=== PATIENT | female | born 1965 | race Caucasian/White ===

== ENCOUNTER 2016-09-11 11:06 | Observation (INO) | payer MEDICAID, MEDICARE ==
[2016-09-11] MEDS ORDERED: Aspirin Low Dose CHEW TAB* 81 MG PO ONE (11:54)
[2016-09-11 12:08] LABS: Hematocrit 44 % (35-47); Hemoglobin 14.4 g/dl (12.0-16.0); Mean Corpuscular HGB Conc 33 g/dl (31-36); Mean Corpuscular Hemoglobin 27 pg (27-31); Mean Corpuscular Volume 84 fL (80-97); Mean Platelet Volume 8 um3 (7.4-10.4); Red Blood Count 5.27 10^6/ul (4.0-5.4); Red Cell Distribution Width 16 % (10.5-15); White Blood Count 4.4 10^3/ul (3.5-10.8)
[2016-09-11 12:20] LABS: Albumin 3.9 g/dL (3.2-5.2); BUN/Creatinine Ratio 12.9 (8-20); Calcium 9.1 mg/dL (8.6-10.3); EGFR African American 74.3 (>60); EGFR Non-African American 57.8 (>60); Globulin 2.9 g/dL (2-4); Total Bilirubin 0.6 mg/dL (0.2-1.0); Total Protein 6.8 g/dL (6.4-8.9)
--- NOTE | 2016-09-11 12:26 | RAD ---
Indication: Shortness of breath. Back pain. History of surgery this year to remove a mass near the heart. Comparison: No relevant prior exams available on the [facility] PACS for comparison. Technique: Upright AP 1202 hours Report: Obese body habitus limits image quality. Mild blunting of the LEFT costophrenic angle while nonspecific may reflect a small effusion or parenchymal thickening. The lungs are otherwise clear. Negative for pneumothorax. Cardiomegaly. Unremarkable central pulmonary vasculature and mediastinal contours. IMPRESSION: Mild blunting of the LEFT costophrenic angle while nonspecific may reflect a small effusion or parenchymal thickening. There are no relevant prior exams available on the [facility] P[facility] for comparison. Correlate with clinical data and consider contrast-enhanced chest CT for further assessment if deemed appropriate.
[2016-09-11 12:44] LABS: TSH (Thyroid Stimulating Horm) 5.93 mcIU/mL (0.34-5.60)
[2016-09-11] MEDS ORDERED: Iodixanol* (CONTRAST) 320 MG/ML 100 ML SDV IV ONE (12:55)
--- NOTE | 2016-09-11 13:37 | RAD ---
INDICATION: Chest pain. Short of breath. Evaluate for pulmonary embolus. COMPARISON: Chest x-ray September 11, 2016 TECHNIQUE: Axial source images were obtained from the thoracic inlet to the hemidiaphragms following administration of 96 mL Vis[address] angiographic technique was utilized. Coronal and sagittal reconstructed images were acquired. CHEST FINDINGS: Neck/thyroid: The visualized neck to include the thyroid appear normal. Chest wall: There are no acute abnormalities of the bony thorax or chest wall. There is no supraclavicular, infraclavicular, or axillary lymphadenopathy. Lungs : There are no pulmonary parenchymal masses or infiltrates. There is minimal left basilar atelectasis. The pulmonary interstitium appears normal. There are no endobronchial lesions. Cardiomediastinal structures: There are third order and distal acute pulmonary emboli involving the right upper and lower lobes. The heart is normal in size. There is no pericardial effusion. There is no evidence of aortic aneurysm or dissection. There is no mediastinal or hilar adenopathy. The esophagus appears normal. Pleura : There are no pleural-based masses or effusions. Other: There is a small hiatal hernia. IMPRESSION: ACUTE RIGHT-SIDED PULMONARY EMBOLI. FINDINGS CALLED TO EMERGENCY DEPARTMENT.
[2016-09-11] MEDS ORDERED: Heparin VIAL(*) 5000 UNITS/ML VIAL (FIVE THOUSAND) IV SCH ×2 (14:00→16:00)
[2016-09-11] MEDS ORDERED: Heparin DRIP 25,000 UNITS(*) 25,000 UNITS/500 ML BAG IVPB SCH ×2 (14:00→15:15)
[2016-09-11] MEDS ORDERED: Acetaminophen TAB* 325 MG PO PRN (15:08)
[2016-09-11] MEDS ORDERED: Ondansetron INJ* 2 MG/ML VIAL IV PRN (15:08)
[2016-09-11] MEDS ORDERED: Albuterol 2.5 MG/3 ML NEB.SOL* (0.083%) INH PRN (15:17)
[2016-09-11 15:54] LABS: T4 8.14 mcg/mL (6.09-12.23)
[2016-09-11 15:59] LABS: Free T4 0.94 ng/dL (0.61-1.12)
[2016-09-11 16:03] LABS: Total T3 0.74 ng/mL (0.87-1.78)
--- NOTE | 2016-09-11 18:01 | ED ---
India Tong Claudia, scribed for Bernardo Torres MD on 09/11/16 at 1149 . Complex/Multi-Sys Presentation - HPI Summary HPI Summary: 51 year old female presents to [facility] ED with skin diaphoresis. Pt states that she is visiting a friend from [place] and has recently been getting very SOB, hot, fatigued. She notes that she came to [place] on a bus a few weeks ago and has been having Sx ever since the long car ride. Pt states that she was walking around a store today when she felt SOB and felt like she needed to sit down. The pt then noted skin diaphoresis. She not sitting and resting are alleviating factors. Pt denies any current SOB,CP, NVD but admits to mild cough and some skin diaphoresis. - History Of Current Complaint Chief Complaint: EDShortnessOfBreath Hx Obtained From: Patient Onset/Duration: Gradual Onset, Still Present Associated Signs And Symptoms: Positive: Diaphoresis. Negative: Chest Pain - Allergies/Home Medications Allergies/Adverse Reactions: Allergies Allergy/AdvReac Type Severity Reaction Status Date / Time Penicillins [PCN] Allergy Hives Verified 09/11/16 11:14 Sulfa Antibiotics Allergy Hives Verified 09/11/16 11:14 Home Medications: Home Medications NK [No Home Medications Reported] 09/11/16 [History Confirmed 09/11/16] PMH/Surg Hx/FS Hx/Imm Hx Previously Healthy: Yes Endocrine/Hematology History: Denies: Hx Diabetes Cardiovascular History: Denies: Hx Myocardial Infarction Infectious Disease History: No Infectious Disease History: Denies: Traveled Outside the [place] in Last 30 Days - Social History Alcohol Use: Occasionally Substance Use Type: Reports: None Smoking Status (MU): Never Smoked Tobacco Review of Systems Positive: Skin Diaphoresis Eyes: Negative ENT: Negative Cardiovascular: Negative Negative: Chest Pain Positive: Cough. Negative: Shortness Of Breath Gastrointestinal: Negative Negative: Abdominal Pain, Vomiting, Diarrhea, Nausea Genitourinary: Negative Musculoskeletal: Negative Skin: Negative Neurological: Negative Psychological: Normal All Other Systems Reviewed And Are Negative: Yes Physical Exam - Summary Physical Exam Summary: VITAL SIGNS: Reviewed. GENERAL: Patient is a well-developed and nourished female who is lying comfortable in the stretcher. Patient is not in any acute respiratory distress. The patient is obese. HEAD AND FACE: No signs of trauma. No ecchymosis, hematomas or skull depressions. No sinus tenderness. EYES: PERRLA, EOMI x 2, No injected conjunctiva, no nystagmus. EARS: Hearing grossly intact. Ear canals and tympanic membranes are within normal limits. MOUTH: Oropharynx within normal limits. NECK: Supple, trachea is midline, no adenopathy, no JVD, no carotid bruit, no c- spine tenderness, neck with full ROM. CHEST: Symmetric, no tenderness at palpation LUNGS: Clear to auscultation bilaterally. No wheezing or crackles. CVS: Regular rate and rhythm, S1 and S2 present, no murmurs or gallops appreciated. ABDOMEN: Soft, non-tender. No signs of distention. No rebound no guarding, and no masses palpated. Bowel sounds are normal. EXTREMITIES: FROM in all major joints, no edema, no cyanosis or clubbing. NEURO: Alert and oriented x 3. No acute neurological deficits. Speech is normal and follows commands. SKIN: Dry and warm Triage Information Reviewed: Yes Vital Signs On Initial Exam: Initial Vitals Temp Pulse Resp BP Pulse Ox 98.1 F 68 20 159/93 98 09/11/16 11:09 09/11/16 11:09 09/11/16 11:09 09/11/16 11:09 09/11/16 11:09 Vital Signs Reviewed: Yes - Taylor Coma Scale Coma Scale Total: 15 Diagnostics - Vital Signs Vital Signs Temp Pulse Resp BP Pulse Ox 09/11/16 11:37 20 09/11/16 11:36 65 09/11/16 11:31 20 09/11/16 11:30 139/87 09/11/16 11:09 98.1 F 68 20 159/93 98 - Laboratory Lab Results: Lab Results 09/11/16 09/11/16 09/11/16 Range/Units 11:30 11:30 11:30 WBC 4.4 (3.5-10.8) 10^3/ul RBC 5.27 (4.0-5.4) 10^6/ul Hgb 14.4 (12.0-16.0) g/dl Hct 44 (35-47) % MCV 84 (80-97) fL MCH 27 (27-31) pg MCHC 33 (31-36) g/dl RDW 16 H (10.5-15) % Plt Count 150 (150-450) 10^3/ul MPV 8 (7.4-10.4) um3 Neut % (Auto) 51.9 (38-83) % Lymph % (Auto) 34.3 (25-47) % [place] % (Auto) 7.4 (1-9) % Eos % (Auto) 5.2 (0-6) % Baso % (Auto) 1.2 (0-2) % Absolute Neuts (auto) 2.3 (1.5-7.7) 10^3/ul Absolute Lymphs (auto) 1.5 (1.0-4.8) 10^3/ul Absolute Monos (auto) 0.3 (0-0.8) 10^3/ul Absolute Eos (auto) 0.2 (0-0.6) 10^3/ul Absolute Basos (auto) 0.1 (0-0.2) 10^3/ul Absolute Nucleated RBC 0.01 10^3/ul Nucleated RBC % 0.3 INR (Anticoag Therapy) 0.92 (0.89-1.11) APTT 32.5 (26.0-36.3) seconds D-Dimer, Quantitative 957 H (Less Than 230) ng/mL Sodium 139 (133-145) mmol/L Potassium 4.0 (3.5-5.0) mmol/L Chloride 104 (101-111) mmol/L Carbon Dioxide 28 (22-32) mmol/L Anion Gap 7 (2-11) mmol/L BUN 13 (6-24) mg/dL Creatinine 1.01 H (0.51-0.95) mg/dL Est GFR ( Amer) 74.3 (>60) Est GFR (Non-Af Amer) 57.8 (>60) BUN/Creatinine Ratio 12.9 (8-20) Glucose 94 (70-100) mg/dL Lactic Acid (0.5-2.0) mmol/L Calcium 9.1 (8.6-10.3) mg/dL Magnesium 2.0 (1.9-2.7) mg/dL Total Bilirubin 0.60 (0.2-1.0) mg/dL AST 13 (13-39) U/L ALT 11 (7-52) U/L Alkaline Phosphatase 75 (34-104) U/L CK-MB (CK-2) 1.3 (0.6-6.3) ng/mL Troponin I 0.00 (<0.04) ng/mL B-Natriuretic Peptide ( - 100) pg/mL Total Protein 6.8 (6.4-8.9) g/dL Albumin 3.9 (3.2-5.2) g/dL Globulin 2.9 (2-4) g/dL Albumin/Globulin Ratio 1.3 (1-3) TSH 5.93 H (0.34-5.60) mcIU/mL Free T4 0.94 (0.61-1.12) ng/dL Thyroxine (T4) 8.14 (6.09-12.23) mcg/mL Free T3 3.00 (2.5-3.9) pg/mL Total T3 0.74 L (0.87-1.78) ng/mL 09/11/16 09/11/16 Range/Units 11:30 11:30 WBC (3.5-10.8) 10^3/ul RBC (4.0-5.4) 10^6/ul Hgb (12.0-16.0) g/dl Hct (35-47) % MCV (80-97) fL MCH (27-31) pg MCHC (31-36) g/dl RDW (10.5-15) % Plt Count (150-450) 10^3/ul MPV (7.4-10.4) um3 Neut % (Auto) (38-83) % Lymph % (Auto) (25-47) % [place] % (Auto) (1-9) % Eos % (Auto) (0-6) % Baso % (Auto) (0-2) % Absolute Neuts (auto) (1.5-7.7) 10^3/ul Absolute Lymphs (auto) (1.0-4.8) 10^3/ul Absolute Monos (auto) (0-0.8) 10^3/ul Absolute Eos (auto) (0-0.6) 10^3/ul Absolute Basos (auto) (0-0.2) 10^3/ul Absolute Nucleated RBC 10^3/ul Nucleated RBC % INR (Anticoag Therapy) (0.89-1.11) APTT (26.0-36.3) seconds D-Dimer, Quantitative (Less Than 230) ng/mL Sodium (133-145) mmol/L Potassium (3.5-5.0) mmol/L Chloride (101-111) mmol/L Carbon Dioxide (22-32) mmol/L Anion Gap (2-11) mmol/L BUN (6-24) mg/dL Creatinine (0.51-0.95) mg/dL Est GFR ( Amer) (>60) Est GFR (Non-Af Amer) (>60) BUN/Creatinine Ratio (8-20) Glucose (70-100) mg/dL Lactic Acid 0.9 (0.5-2.0) mmol/L Calcium (8.6-10.3) mg/dL Magnesium (1.9-2.7) mg/dL Total Bilirubin (0.2-1.0) mg/dL AST (13-39) U/L ALT (7-52) U/L Alkaline Phosphatase (34-104) U/L CK-MB (CK-2) (0.6-6.3) ng/mL Troponin I (<0.04) ng/mL B-Natriuretic Peptide 75 ( - 100) pg/mL Total Protein (6.4-8.9) g/dL Albumin (3.2-5.2) g/dL Globulin (2-4) g/dL Albumin/Globulin Ratio (1-3) TSH (0.34-5.60) mcIU/mL Free T4 (0.61-1.12) ng/dL Thyroxine (T4) (6.09-12.23) mcg/mL Free T3 (2.5-3.9) pg/mL Total T3 (0.87-1.78) ng/mL Result Diagrams: 09/11/16 11:30 09/11/16 11:30 Lab Statement: Any lab studies that have been ordered have been reviewed, and results considered in the medical decision making process. - Radiology CXR Xray Interpretation: Positive (See Comments) - Mild blunting of the LEFT costophrenic angle while nonspecific may reflect a small effusion or parenchymal thickening. There are no relevant prior exams available on the [facility] PACS for comparison. Correlate with clinical data and consider contrast- enhanced chest CT for further assessment if deemed appropriate. Radiology Interpretation Completed By: Radiologist - CT CHEST/THORAX CTA CT Interpretation Completed By: Radiologist - ACUTE RIGHT-SIDED PULMONARY EMBOLI. FINDINGS CALLED TO EMERGENCY DEPARTMENT. - EKG 11:23 Cardiac Rate: NL EKG Rhythm: Sinus Rhythm - 66 BEATS/MIN ST Segment: Normal - NO ST ELEVATION Re-Evaluation - Re-Evaluation 1 Re-Evaluation Time: 13:37 Comment: Results of the Chest/Thorax CTA is discussed with the pt. Pt is agreeable with the plan to be admitted to [facility]. Complex Multi-Symp Course/Dx Course Of Treatment: 51 year old female presents to [facility] ED with skin diaphoresis. Pt states that she is visiting a friend from [place] and has recently been getting very SOB, hot, fatigued. She notes that she came to [place] on a bus a few weeks ago and has been having Sx ever since the long car ride. Pt states that she was walking around a store today when she felt SOB and felt like she needed to sit down. The pt then noted skin diaphoresis. She not sitting and resting are alleviating factors. Pt denies any current SOB,CP, NVD but admits to mild cough and some skin diaphoresis Assessment/Plan: Lab results within nml limits except for D-Dimer of 957. TSH 5.9. CXR shows the pt has positive for PE. The pt was started on heparin, I disclosed the case with Dr. Cobb who accepts the pt for admission. The pt is hemodynamically stable Alert and Oriented x3. - Diagnoses Provider Diagnoses: Pulmonary embolism - Physician Notifications Discussed Care Of Patient With: DR. COBB WILL ADMIT THE PT. HE RECOMMENDS HEPARIN. Time Discussed With Above Provider: 13:56 Instructed by Provider To: Admit As Observation Discharge - Discharge Plan Condition: Stable Disposition: ADMITTED TO [facility] The documentation as recorded by the India cano Claudia accurately reflects the service I personally performed and the decisions made by me, Bernardo Torres MD.
--- NOTE | 2016-09-11 20:57 | HP ---
CC: SERA Forde, [place], [place], * HISTORY AND PHYSICAL: DATE OF ADMISSION: 09/11/16 PRIMARY CARE PROVIDER: SERA Forde ATTENDING PHYSICIAN: Dr. Cobb * (DICTATED BY KELLY FERGUSON NP) CHIEF COMPLAINT: 1. Right-sided flank pain and chest pain. 2. Dizziness. 3. Presyncope. HISTORY OF PRESENT ILLNESS: Ms. Bang is a 51-year-old female patient. She says she has a history of CVA, W[place], history of borderline diabetes, COPD, hypertension, and coronary artery disease. She comes in and says she also had a mass near her heart, although she does not know if it was cancerous or not. She comes in today. She was coming up from [place], [place], on the bus a couple of weeks ago to visit family and she started having episodes while on the bus of feeling pain in the right side sharp, stabbing pain. She thought it was indigestion. She tried eating thinking that this might make it feel better. She was taking over-the- counter medications, although it was not helping. She does state that she was feeling more short of breath particularly with exertion. She did admit to having pain in the right side, got worse with taking a deep breath. She said she had 2 episodes while on the bus where she felt she was going to faint. Yesterday, she was in [employer], she again felt flushed. She had pain on her right side worse with taking a deep breath. She was having dyspnea on exertion. She felt like she was going to faint. She felt dizzy and lightheaded. She did not faint. Her friend finally convinced her to come into the ER today to be evaluated. She denies having any chest pain currently. There are no recent fevers or chills. No coughing. No vomiting. There has been no dysuria, no frequency, no seizure. There was no loss of consciousness, although she felt like she was going to. She came into the ER. She underwent a CTA of the chest, which did show a large right-sided pulmonary embolism. Because of this, the hospitalist service was asked to evaluate in admission. PAST MEDICAL HISTORY: Significant for: 1. CAD. 2. [place]. 3. CVA. 4. Borderline diabetes. 5. COPD. 6. Hypertension. PAST SURGICAL HISTORY: She said she has had a heart catheterization, she has had a , and carpal tunnel repair. MEDICATIONS: Her home meds were denied. ALLERGIES TO MEDICATIONS: Include PENICILLIN and SULFA drugs. FAMILY HISTORY: Reviewed, noncontributory. She does not recall her parents' history. SOCIAL HISTORY: She rarely drinks alcohol. She does not smoke. Surrogate decision maker is her son. REVIEW OF SYSTEMS: There is no documented fever. She denied any significant weight change. There was no double vision. She denies having any ear discharge. There was no rhinorrhea. There is no sore throat. No thyroid enlargement. She denied having any chest pain currently. There was no orthopnea, no nocturnal dyspnea. There was no abdominal pain. She did have this right-sided flank pain that got worse with deep breath, describes a sharp, stabbing pain. No dysuria, no frequency. She felt like she was going to pass out, although she never did. There was no seizure and again no loss of consciousness. Review of 14 systems completed, all others negative. PHYSICAL EXAMINATION GENERAL: At this time, Ms. Bang is a 51-year-old female patient. She is morbidly obese. She is sitting in the ER stretcher. She does not appear to be in any acute distress. VITAL SIGNS: Reveal blood pressure 127/68, pulse 68, respirations 16, O2 sat 98 %, temperature 98.1. HEENT: Head is atraumatic, normocephalic. Eyes: EOMs are intact. Sclerae were anicteric and not pale. Throat: Oral mucosa did appear to be dry. No oropharyngeal erythema. NECK: Supple. LUNGS: Clear to auscultation. No wheezes, rales, or rhonchi. HEART: Sounds S1, S2. Regular rate and rhythm. No murmurs, rubs, or gallops. ABDOMEN: Soft and flat. Bowel sounds are present. She is morbidly obese. It was nontender. EXTREMITIES: No peripheral edema. She is moving all 4 extremities with 5/5 strength. NEUROLOGIC: She is awake, alert, oriented x3. She does have some residual right- sided weakness from her stroke, but it is very subtle compared to the left side. No other gross focal deficits. SKIN: Intact. DIAGNOSTIC STUDIES/LAB DATA: Revealed WBC of 4.4, RBC of 5.27, hemoglobin 14.4 , hematocrit of 44, and platelet count of 150. INR 0.92, PTT is 32.5, D-dimer 975. Sodium of 139, potassium 4.0, chloride of 104, bicarb 28, BUN 13, creatinine 1.01, glucose of 94, lactate 0.9, calcium 9.1, mag 2.0. Total bili 0.6, AST 13, ALT 11, alk phos 35. CK 1.3. Troponin 0. BNP is 75. Albumin is 3.9. TSH of 5.39. She did have a CTA of the chest today as well which revealed acute right-sided pulmonary emboli, findings called to the ER. There was an EKG obtained today. Initial EKG interestingly showed a right bundle branch block with question of atrial fibrillation, difficult tracing due to artifact, she did have a PVC; however, on repeat EKG, the right bundle branch block has resolved. She actually appeared to be in sinus rhythm, rate 66. No ST elevations or T-wave inversions. No previous EKG for comparison. There was a chest x-ray obtained today as well. Under my review, I do not appreciate any acute infiltrates. Radiology read as mild blunting in the left costophrenic angle which specific may represent a small effusion or parenchymal thickening. There are no relative prior films available on [facility] P[facility] for comparison. Old medical records were reviewed. ASSESSMENT AND PLAN: Ms. Bang is a 51-year-old female patient. She is morbidly obese, coming into the ER today with complaints of right-sided flank pain, worse with deep breath, evaluation for pulmonary embolism. She will be admitted on inpatient status for: 1. Pulmonary embolism. At this point, I will go ahead and place her on a heparin drip. We could transition this tomorrow to Xarelto. I do like to get the echo to make sure she is not having any given the fact she had this right bundle branch block. Right now, she appears to be comfortable. She is not hypoxic. She is not tachypneic in bed. So, we will continue the heparin drip. We will get an echo in the morning. We will follow. In the meantime, we are going to records from [facility]. 2. Coronary artery disease. She said she is not on any medications currently. I would recommend in the outpatient setting at least an aspirin. I will defer to the primary and we will get records. 3. History of cerebrovascular accident. Again, I would recommend at least an aspirin but she will be on a blood thinner now, which could be again started with the primary. 4. History of borderline diabetes. Continue with medical management. 5. Chronic obstructive pulmonary disease. I did order p.r.n. albuterol. 6. Hypertension. Her blood pressure is stable. We will monitor for the time being. 7. Code status. Full code. 8. Fluids, electrolytes, and nutrition. She can have a heart-healthy diet. TIME SPENT: On admission was approximately 60 minutes, greater than half of the time was spent [id number] with the patient obtaining my history and physical, other half the time spent going over the plan of care with the patient and implementing the plan of care. I did discuss the plan of care with my attending, Dr. Cobb; he is in agreement. KELLY FERGUSON, STORM [id number]/CPS #: [id number] PEPITO
[2016-09-12 05:02] VITALS: BP 118/77
[2016-09-12 05:06] LABS: Hematocrit 41 % (35-47); Hemoglobin 13.2 g/dl (12.0-16.0); Mean Corpuscular HGB Conc 33 g/dl (31-36); Mean Corpuscular Hemoglobin 27 pg (27-31); Mean Corpuscular Volume 84 fL (80-97); Mean Platelet Volume 9 um3 (7.4-10.4); Red Blood Count 4.85 10^6/ul (4.0-5.4); Red Cell Distribution Width 16 % (10.5-15)
[2016-09-12 05:15] LABS: BUN/Creatinine Ratio 12.9 (8-20); Calcium 8.3 mg/dL (8.6-10.3); EGFR African American 74.3 (>60); EGFR Non-African American 57.8 (>60); Potassium 3.6 mmol/L (3.5-5.0)
[2016-09-12] MEDS ORDERED: Perflutren Lipid Microsphere* 3 ML VIAL ONE (11:10)
--- NOTE | 2016-09-12 12:02 | DCNOTE ---
Patient seen this morning. Says she is feeling much better, breathing is easier. She has been able to get around with no issues. No chest/flank pain. On exam, RRR, s1 and s1 present, no m/g/r, lungs CTA B/L, no w/r/r, abd soft, obese, NTND, chronic LE skin changes Discussed AC options and patient agreed to start xarelto. Will need to f/u with her PCP in [place] when she returns in the next week or so.
[2016-09-12] MEDS ORDERED: Rivaroxaban TAB(*) 15 MG PO ONE (12:37)
--- NOTE | 2016-09-12 14:54 | ECHO ---
Patient: MEREDITH MATA [facility] Rec#: [id number] : 1965 Date: 09/12/2016 Age: 51y Height: 157.48 cm / 62.0 in Weight: 148.32 kg / 326.9 lbs Sex: F BSA: 2.36 Room#: 432 Admit Date#: 09/11/2016 Type: Inpatient Referring: Humberto Burrell NP Reading: Cedrick Sprague MD Piling Cutter: [facility] Transthoracic Echocardiogram Indication: Pulmonary Embolism, SOB. BP: 118/77 HR: 61 Rhythm: NSR Indications Pulmonary Embolism Findings History: HTN, DM, MO, CAD/UT, CVA, former smoker. Technical Comments: The study is technically difficult. The study is technically limited due to patient body habitus. Completed at 1230. Left Ventricle: The left ventricular chamber size is normal. There is no left ventricular hypertrophy. Global left ventricular wall motion and contractility are within normal limits. Left ventricular systolic function is at the lower limits of normal. The estimated ejection fraction is 50-55%. There is septal flattening of the interventricular septum consistent with right ventricular volume or pressure overload. There is no consistent Doppler evidence of clinically significant diastolic dysfunction. Left Atrium: The left atrium is slightly dilated. Right Ventricle: Moderator Band present. The right ventricle is mildly dilated. The right ventricular global systolic function is mildly reduced. Right Atrium: The right atrium is moderately dilated. Aortic Valve: The aortic valve is trileaflet. There is no evidence of aortic regurgitation. There is no evidence of aortic stenosis. Mitral Valve: The mitral valve leaflets are mildly thickened. There is trace to mild mitral regurgitation. There is no evidence of mitral stenosis. Tricuspid Valve: The tricuspid valve leaflets are normal. There is trace tricuspid regurgitation. The right ventricular systolic pressure is estimated at 17 mmHg. There is evidence that pulmonary hypertension may be underestimated. There is no tricuspid stenosis. Pulmonic Valve: The pulmonic valve appears normal. There is a trace pulmonic regurgitation. There is no pulmonic stenosis. Pericardium: There is no significant pericardial effusion. A pericardial fat pad is visualized. Aorta: There is mild dilatation of the ascending aorta. There is no dilatation of the aortic arch. There is no dilation of the aortic root. Pulmonary Artery: The main pulmonary artery appears normal. Venous: The inferior vena cava appears normal in size. There is a greater than 50% respiratory change in the inferior vena cava dimension. Contrast: Definity was used to optimize study. Intravenous contrast was used to enhance endocardial border definition. 3 mL of diluted Definity was utilized. Summary: There was not any prior study for comparison. Conclusions The left ventricular chamber size is normal. Global left ventricular wall motion and contractility are within normal limits. The estimated ejection fraction is 50-55%. There is septal flattening of the interventricular septum consistent with right ventricular volume or pressure overload. The left atrium is slightly dilated. The right atrium is moderately dilated. The right ventricle is mildly dilated. The right ventricular global systolic function is mildly reduced. There is trace to mild mitral regurgitation. There is trace tricuspid regurgitation. There is evidence that pulmonary hypertension may be underestimated. There is a trace pulmonic regurgitation. There is mild dilatation of the ascending aorta. Measurements Name Value Normal Range RVIDd (AP) 2D 2.4 cm (0.9 - 2.6) RVDdMajor (2D) 4.1 cm (2.2 - 4.4) RAd ISD 4CH 5.8 cm (3.4 - 4.9) RA (A4C)W 4 cm (2.9 - 4.6) IVSd (2D) 0.8 cm (0.6 - 1) LVPWd (2D) 0.8 cm (0.6 - 1) LVIDd (2D) 5.3 cm (3.6 - 5.4) LVIDs (2D) 3.9 cm - LV FS (2D) 27 % (25 - 45) Aortic Annulus 1.9 cm (1.4 - 2.6) Ao root diameter (2D) 3.3 cm (2.1 - 3.5) Ascending Ao 3.6 cm (2.1 - 3.4) Aortic arch 3.1 cm (1.8 - 3.4) LA dimension (AP) 2D 3.5 cm (2.3 - 3.8) LAd ISD 4CH 5.7 cm (2.9 - 5.3) LA ISD 4CH W 4.8 cm (2.5 - 4.5) Name Value Normal Range LA ESV SP 4CH (A/L) 52 ml - LA ESV SP 2CH (A/L) 90 ml - LA ESV BP (A/L) 70 ml - LA ESV SP 4CH (MOD) 47 ml - LA ESV SP 2CH (MOD) 87 ml - Name Value Normal Range MV E-wave Vmax 1 m/sec - MV deceleration time 151 msec - MV A-wave Vmax 0.77 m/sec - MV E:A ratio 1.29 ratio - LV septal e' Vmax 0.12 m/sec - LV lateral e' Vmax 0.1 m/sec - LV E:e' septal ratio 8.33 ratio - LV E:e' lateral ratio 10 ratio - Name Value Normal Range AV Vmax 1.21 m/sec - AV VTI 26.53 cm - AV peak gradient 5.84 mmHg - AV mean gradient 3.01 mmHg - LVOT Vmax 0.96 m/sec - LVOT VTI 24.22 cm - LVOT peak gradient 3.68 mmHg - LVOT mean gradient 2.15 mmHg - YAW Vmax 0.84 m/sec - Name Value Normal Range TR Vmax 1.8 m/sec - TR peak gradient 14 mmHg - RAP 3 mmHg - RVSP 17 mmHg - IVC diameter 1.6 cm - Name Value Normal Range PV Vmax 0.84 m/sec - PV peak gradient 2.8 mmHg -
--- NOTE | 2016-09-13 07:58 | DS ---
DISCHARGE SUMMARY: DATE OF ADMISSION: 09/11/16 DATE OF DISCHARGE: 09/12/16 PRIMARY CARE PHYSICIAN: Dr. Azar in [place], [place]. PRINCIPAL DISCHARGE DIAGNOSIS: Pulmonary emboli. DISCHARGE MEDICATION REGIMEN: Xarelto 15 mg by mouth 2 times daily for 3 weeks followed by 20 mg by mouth daily. STUDIES DONE DURING THE HOSPITALIZATION: Chest x-ray, impression: Mild blunting of the left costophrenic angle, while nonspecific, may reflect a small effusion or parenchymal thickening. There are no relevant prior exams available. CTA of the chest shows acute right-sided pulmonary emboli that are third order and distal involving the right upper and lower lobes. Transthoracic echocardiogram, conclusion: Left chamber size normal. Global left ventricular wall motion contractility within normal limits. Estimated ejection fraction of 50% to 55%. There is septal flattening of the interventricular septum consistent with right ventricular volume or pressure overload. The left atrium is slightly dilated. The right atrium is moderately dilated. The right ventricle is mildly dilated. The right ventricle global systolic function is mildly reduced. There is [id number] mitral regurgitation , trace tricuspid regurgitation, evidence of pulmonary hypertension that may be under-estimated, trace pulmonic regurgitation, mild dilatation of the ascending aorta. HISTORY OF PRESENT ILLNESS AND HOSPITAL SUMMARY: Please seen the full history and physical by Humberto Burrell NP, for full details. Briefly, Ms. Bang is a 51-year- old female with a past medical history of hypertension, COPD, borderline diabetes, who presents to the hospital with sharp right-sided chest and flank pain. This is in the context of a recent long bus ride from [place]. In the emergency department, the patient was found to have right-sided pulmonary emboli on CTA. She had a B-natriuretic peptide that was normal as well as negative troponins x3. The patient was started on heparin drip and transitioned to Xarelto. By the following day, she stated her symptoms had improved significantly. She was able to ambulate without getting short of breath and denied any further pain. Echo was done that showed some mild- moderate right-sided heart findings, but as the patient was clinically stable, I felt she was safe for discharge. She will be sent home on Xarelto and will follow up with her PCP in [place]. TIME SPENT: Total time spent on this discharge, 40 minutes. This is a summary of the hospitalization, please see the full medical record for further details. [id number]/[facility] #: [id number] MTDD
== END 2016-09-12 13:50 | disposition home or self-care (01) ==
LOC: ED 11:06 → MEDTELE 15:04
PROVIDERS: ADMIT Internal Medicine; ATTEND Hospitalist
DX: I26.99 Other pulmonary embolism without acute cor pulmonale (principal); R06.02 Shortness of breath; R07.9 Chest pain, unspecified; I25.10 Atherosclerotic heart disease of native coronary artery without angina pectoris; J44.9 Chronic obstructive pulmonary disease, unspecified; R55 Syncope and collapse; I10 Essential (primary) hypertension; I45.10 Unspecified right bundle-branch block; I49.3 Ventricular premature depolarization; R10.9 Unspecified abdominal pain; R42 Dizziness and giddiness; R73.03 Prediabetes; I25.2 Old myocardial infarction; Z86.73 Personal history of transient ischemic attack (TIA), and cerebral infarction without residual deficits; E66.01 Morbid (severe) obesity due to excess calories
CPT/HCPCS: 36415; 71010; 71275; 80048; 80053; 82553; 83605; 83735; 83880; 84436; 84439; 84443; 84479; 84481; 84484; 85025; 85379; 85610; 85730; 93005; 93306; 94760; 96365; 96366; 96372; 99284; A9270-GY; C8929; G0378; J1644; Q9967

== ENCOUNTER 2016-09-18 10:40 | Emergency (ER) | payer MEDICARE ==
[2016-09-18 11:49] VITALS: BP 141/79
[2016-09-18] MEDS ORDERED: Tetan/Diph/Pertus SYR(Tdap)* 0.5 ML SYR(BOOSTRIX) use SYR IM ONE (12:37)
--- NOTE | 2016-09-18 12:49 | UC ---
Skin Complaint HPI - HPI Summary HPI Summary: This is a 51 yo female with h/o recent hospitalization for PE visiting the area from [place] who presented after a cat scratch earlier today. She noted increased redness and swelling in the area and some drainage from the area. Denies fever , SOB, CP, abd pain, n/v. - History of Current Complaint Chief Complaint: UCSkin Stated Complaint: SOFT TISSUE COMPLAINT - Allergy/Home Medications Allergies/Adverse Reactions: Allergies Allergy/AdvReac Type Severity Reaction Status Date / Time Penicillins [PCN] Allergy Hives Verified 09/11/16 11:14 Sulfa Antibiotics Allergy Hives Verified 09/11/16 11:14 Review of Systems Constitutional: Negative Skin: Other - scratch Eyes: Negative ENT: Negative Respiratory: Negative Cardiovascular: Negative Gastrointestinal: Negative Genitourinary: Negative Motor: Negative Neurovascular: Negative Musculoskeletal: Negative Neurological: Negative Psychological: Negative All Other Systems Reviewed And Are Negative: Yes PMH/Surg Hx/FS Hx/Imm Hx Previously Healthy: No - recent PE Other Endocrine History: morbid obesity Cardiovascular History: Cardiac Disease Respiratory History: COPD Neurological History: CVA - Surgical History Surgical History: Yes Surgery Procedure, Year, and Place: D&C, 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 Negative: Crackles, Rhonchi, Stridor Cardiovascular: Positive: RRR, No Murmur Abdomen Description: Positive: Nontender, Soft, Other: - large pannus Neurological: Positive: Alert Skin: Positive: Other - superficial laceration to the LLE, skin surrounding is edematous and hyperemic but without warmth or erythema Course/Dx - Course Course Of Treatment: This is a 51 yo female with multiple medical problems including morbid obesity, recent PE, COPD, prior CVA and CAD who presented after sustaining a cat scratch to her L leg earlier today. The area is not deep , no repair or irrigation necessary. Because of location and comorbidities, recommend prophylactic abx therapy. Pt is PCN and sulfa allergic, per UTD guidelines will use doxycycline and Flagyl for 5 days. - Differential Diagnoses - Skin Complaint Differential Diagnoses: Abscess, Cellulitis, Foreign Body - Diagnoses Provider Diagnoses: 1. Cat scratch - requires abx prophylaxis Discharge - Discharge Plan Condition: Stable Disposition: HOME Prescriptions: DOXYcycline CAP(*) [DOXYcycline 100MG CAP(*)] 100 mg PO BID #10 cap Metronidazole [Flagyl 500 MG TAB] 500 mg PO TID #15 tab Patient Education Materials: Animal Bite (ED) Referrals: No Primary Care Phys,NOPCP [Primary Care Provider] - Additional Instructions: Activity: As tolerated Instructions: 1. Please take antibiotics as directed (total 5 days) 2. Keep the leg elevated and use compression stockings while traveling 3. Keep the wound clean and dry and change dressing daily
== END 2016-09-18 12:50 | disposition home or self-care (01) ==
LOC: UCEAST 10:40
DX: J44.9 Chronic obstructive pulmonary disease, unspecified (principal); S80.812A Abrasion, left lower leg, initial encounter; W55.03XA Scratched by cat, initial encounter; Y93.9 Activity, unspecified; Y92.9 Unspecified place or not applicable; Y99.9 Unspecified external cause status; E66.01 Morbid (severe) obesity due to excess calories; Z86.711 Personal history of pulmonary embolism; Z86.73 Personal history of transient ischemic attack (TIA), and cerebral infarction without residual deficits; I25.10 Atherosclerotic heart disease of native coronary artery without angina pectoris
CPT/HCPCS: 90471; 90715; 99212; G0463